=== PATIENT | male | born 1950 | race Two or more races ===

== ENCOUNTER 2023-07-18 03:21 | Inpatient (IN) | payer MEDICARE, OTHER ==
[2023-07-18] VITALS (7 sets, daily range): BP systolic 98; BP diastolic 66; PULSE 77–127; RESP 20–24; O2SAT 90–100
[~2023-07-18] VITALS: Ht 175.3 cm; Wt 110.0 kg
[2023-07-18] MEDS ORDERED: IPRATROPIUM BROM 0.5 MG/2.5ML INH SOL NEB ONE (04:00)
[2023-07-18] MEDS ORDERED: DexAMETHasone SOD PHOS 10MG/1ML VIAL INJ IV ONE (04:00)
[2023-07-18] MEDS ORDERED: ALBUTEROL SULF 2.5 MG/0.5ML(0.5%) NEB SOLN NEB ONE (04:00)
[2023-07-18 04:26] LABS: Basophils # (auto) 0 10 ^3/uL (0-0.2); Basophils % (auto) 0.4 % (0.0-2.0); Eosinophils # (auto) 0.1 10 ^3/uL (0-0.8); Eosinophils % (auto) 0.7 % (0.0-7.0); Hematocrit 52.4 % (41.0-53.0); Hemoglobin 17.2 g/dL (13.5-17.5); Lymphocytes % (auto) 13.4 % (10.0-50.0); Mean Corpuscular Hgb Conc. 32.7 g/dL (32.0-36.0); Mean Corpuscular Volume 97.6 fL (80.0-100.0); Monocytes # (auto) 0.7 10 ^3/uL (0-1.3); Monocytes % (auto) 8.6 % (0.0-12.0); Neutrophils % (auto) 76.9 % (37.0-80.0); Nucleated Red Blood Cells % 0.2 %; Red Blood Cells 5.37 10^6/uL (4.5-5.90); Red Cell Distribution Width 15.3 % (11.8-14.3); White Blood Cell 7.8 10^3/uL (4.4-10.8)
[2023-07-18 04:31] LABS: Alanine Aminotransferase 37 U/L (7-40); Albumin 3.9 g/dL (3.2-4.8); Alkaline Phosphatase 51 U/L (46-116); Anion Gap 8 (5-15); Aspartate Aminotransferase 27 U/L (13-40); BUN/Creatinine Ratio 10.7 (10.0-20.0); Blood Urea Nitrogen 13 mg/dL (9-23); Calcium 8.8 mg/dL (8.7-10.4); Carbon Dioxide 24 mmol/L (20-30); Chloride 107 mmol/L (98-107); Glucose 93 mg/dL (74-106); Magnesium 2.3 mg/dL (1.6-2.6); Potassium 3.6 mmol/L (3.5-5.1); Sodium 139 mmol/L (136-145)
[2023-07-18 04:32] LABS: Bilirubin, Total 1.3 mg/dL (0.2-1.0); Total Protein 5.7 g/dL (5.7-8.2)
[2023-07-18 04:37] LABS: INR 1.19 (0.9-1.15); Partial Thromboplastin Time 28.5 SEC (24.5-34.5); Prothrombin Time 12.4 sec (9.3-11.8)
[2023-07-18] MEDS ORDERED: FUROSEMIDE 20 MG/2 ML VIAL IV ONE (10:15)
[2023-07-18] MEDS ORDERED: NITROGLYCERIN 0.4 MG SL TAB SL PRN (10:15)
[2023-07-18] MEDS ORDERED: MORPHINE SULFATE INJ 2 MG/ml SYRG IV PRN (10:15)
[2023-07-18] MEDS ORDERED: ACETAMINOPHEN 325 MG TAB PO PRN (10:15)
[2023-07-18] MEDS ORDERED: ALBUTEROL SULF 2.5 MG/0.5ML(0.5%) NEB SOLN NEB PRN (10:15)
[2023-07-18] MEDS ORDERED: MUPI2OIN2 TOP (10:18)
[2023-07-18] MEDS ORDERED: TAMS1CAP25 PO (10:18)
[2023-07-18] MEDS ORDERED: FURO40TA4 PO (10:18)
[2023-07-18] MEDS ORDERED: THEO400T13 PO (10:18)
[2023-07-18] MEDS ORDERED: CLIN-203 PO (10:18)
[2023-07-18] MEDS ORDERED: CLAR1TAB21 PO (10:18)
[2023-07-18] MEDS ORDERED: ALPR0.255 PO (10:18)
[2023-07-18] MEDS ORDERED: DOXY1CAP57 PO (10:18)
[2023-07-18] MEDS ORDERED: POTA-211 (10:18)
[2023-07-18] MEDS ORDERED: FLUT1AER17 PO (10:18)
[2023-07-18 11:01] LABS: Triglycerides 51 mg/dL (< 150)
[2023-07-18 11:02] LABS: LDL Cholesterol 48 mg/dL (< 100)
[2023-07-18 11:03] LABS: Cholesterol 120 mg/dL (< 200); HDL Cholesterol 63 mg/dL (40-59)
[2023-07-18] MEDS ORDERED: AZITHROMYCIN 500MG/ 250ML 250 ML IV ONE (11:45)
[2023-07-18 13:12] LABS: COVID19 ANTIGEN SOFIA FIA NEGATIVE (NEGATIVE)
[2023-07-18 13:13] LABS: Rapid Influenza A Negative (Negative); Rapid Influenza B Negative (Negative)
[2023-07-18] MEDS: ALBUTEROL SULF 2.5 MG/0.5ML(0.5%) NEB SOLN NEB SCH ×3 (13:32→22:00)
[2023-07-18] MEDS: IPRATROPIUM BROM 0.5 MG/2.5ML INH SOL NEB SCH ×3 (13:32→22:00)
[2023-07-18 15:21] LABS: Urine Bacteria NONE SEEN /hpf (None Seen); Urine Blood Negative /uL (Negative); Urine Clarity Clear (Clear); Urine Color Yellow (Yellow); Urine Protein, UAD Negative (Negative); Urine Specific Gravity 1.008 (1.001-1.035); Urine Urobilinogen Normal (Negative); Urine WBC 1 /hpf (0 - 3); Urine pH 6.5 (5.0-8.0)
[2023-07-18] MEDS ORDERED: IOHEXOL 350 MG/ML 100ML IJ ONE (18:27)
[2023-07-18] MEDS: methylPREDNISolone SOD SUCC 40 MG/ML VL IV SCH (22:00)
[2023-07-18] MEDS ORDERED: ALBU0.084 IN (23:14)
[2023-07-18] MEDS ORDERED: OLAN1TAB19 PO (23:14)
[2023-07-18] MEDS ORDERED: LEVO50TA7 PO (23:14)
[2023-07-18] MEDS ORDERED: CHOL20007 OR (23:14)
[2023-07-18] MEDS ORDERED: PERP2TAB6 PO (23:14)
[2023-07-18] MEDS ORDERED: AMIT10TA12 PO (23:14)
[2023-07-18] MEDS ORDERED: ASCO500T11 PO (23:14)
[2023-07-18] MEDS ORDERED: BUPR-346 PO (23:14)
[2023-07-18] MEDS ORDERED: THEO1CAP4 PO (23:14)
[2023-07-18] MEDS ORDERED: NEBI2.5T6 PO (23:14)
[2023-07-18] MEDS ORDERED: ALBU0.084 NEB (23:14)
[2023-07-18] MEDS ORDERED: PRED15SO33 PO (23:14)
[2023-07-19] VITALS (14 sets, daily range): BP systolic 95–111; BP diastolic 64–73; PULSE 63–104; RESP 14–22; TEMP 97.3–98.3; O2SAT 90–96
[2023-07-19] MEDS: IPRATROPIUM BROM 0.5 MG/2.5ML INH SOL NEB SCH ×7 (02:30→22:17)
[2023-07-19] MEDS: ALBUTEROL SULF 2.5 MG/0.5ML(0.5%) NEB SOLN NEB SCH ×7 (02:30→22:17)
[2023-07-19 06:18] LABS: Basophils # (auto) 0 10 ^3/uL (0-0.2); Basophils % (auto) 0.1 % (0.0-2.0); Eosinophils # (auto) 0 10 ^3/uL (0-0.8); Hematocrit 50.4 % (41.0-53.0); Hemoglobin 17.2 g/dL (13.5-17.5); Lymphocytes # (auto) 0.4 10 ^3/uL (0.4-5.4); Lymphocytes % (auto) 3.4 % (10.0-50.0); Mean Corpuscular Hemoglobin 32.7 pg (28.0-32.0); Mean Corpuscular Volume 95.9 fL (80.0-100.0); Monocytes # (auto) 0.7 10 ^3/uL (0-1.3); Monocytes % (auto) 6.4 % (0.0-12.0); Neutrophils # (auto) 9.8 10 ^3/uL (1.6-8.6); Neutrophils % (auto) 90.1 % (37.0-80.0); Nucleated Red Blood Cells % 0.3 %; Red Blood Cells 5.26 10^6/uL (4.5-5.90); Red Cell Distribution Width 14.8 % (11.8-14.3); White Blood Cell 10.8 10^3/uL (4.4-10.8)
[2023-07-19 06:40] LABS: Alanine Aminotransferase 34 U/L (7-40); Albumin 3.9 g/dL (3.2-4.8); Alkaline Phosphatase 53 U/L (46-116); Anion Gap 11 (5-15); Aspartate Aminotransferase 23 U/L (13-40); BUN/Creatinine Ratio 9.9 (10.0-20.0); Blood Urea Nitrogen 11 mg/dL (9-23); Calcium 9.9 mg/dL (8.5-10.1); Carbon Dioxide 22 mmol/L (20-30); Chloride 107 mmol/L (98-107); Glucose 117 mg/dL (74-106); Potassium 3.9 mmol/L (3.5-5.1); Sodium 140 mmol/L (136-145); Total Protein 5.9 g/dL (5.7-8.2)
[2023-07-19] MEDS: FUROSEMIDE 20 MG/2 ML VIAL IV SCH (09:23)
[2023-07-19] MEDS: ENOXAPARIN SOD 40 MG/0.4 ML SYRINGE SC SCH (09:23)
[2023-07-19] MEDS: methylPREDNISolone SOD SUCC 40 MG/ML VL IV SCH ×2 (09:23→21:16)
[2023-07-19] MEDS ORDERED: AZITHROMYCIN 500MG/ 250ML 250 ML IV SCH (10:00)
[2023-07-19] MEDS ORDERED: THEOPHYLLINE PO SCH (10:00)
[2023-07-19] MEDS ORDERED: TAMSULOSIN HYDROCHLORIDE 0.4 MG CAP PO SCH (10:00)
[2023-07-19] MEDS: BUDESONIDE (INHALATION) 0.5 MG/2 ML NEB NEB SCH (19:20)
[2023-07-20] VITALS (14 sets, daily range): BP systolic 117–123; BP diastolic 68–75; PULSE 56–102; RESP 17–24; TEMP 97.3–97.9; O2SAT 90–99
[2023-07-20] MEDS: IPRATROPIUM BROM 0.5 MG/2.5ML INH SOL NEB SCH ×4 (02:16→14:11)
[2023-07-20] MEDS: ALBUTEROL SULF 2.5 MG/0.5ML(0.5%) NEB SOLN NEB SCH ×4 (02:16→14:12)
[2023-07-20] MEDS: BUDESONIDE (INHALATION) 0.5 MG/2 ML NEB NEB SCH (06:27)
[2023-07-20 06:49] LABS: Basophils # (auto) 0 10 ^3/uL (0-0.2); Basophils % (auto) 0.1 % (0.0-2.0); Eosinophils # (auto) 0 10 ^3/uL (0-0.8); Hematocrit 51.9 % (41.0-53.0); Hemoglobin 17.2 g/dL (13.5-17.5); Lymphocytes # (auto) 0.5 10 ^3/uL (0.4-5.4); Lymphocytes % (auto) 3.6 % (10.0-50.0); Mean Corpuscular Hgb Conc. 33.3 g/dL (32.0-36.0); Mean Corpuscular Volume 96.1 fL (80.0-100.0); Monocytes % (auto) 7.9 % (0.0-12.0); Neutrophils # (auto) 11.3 10 ^3/uL (1.6-8.6); Neutrophils % (auto) 88.4 % (37.0-80.0); Nucleated Red Blood Cells % 0.2 %; Red Cell Distribution Width 14.9 % (11.8-14.3); White Blood Cell 12.8 10^3/uL (4.4-10.8)
[2023-07-20 06:50] LABS: Anion Gap 11 (5-15); Carbon Dioxide 24 mmol/L (20-30); Chloride 105 mmol/L (98-107); Sodium 140 mmol/L (136-145)
[2023-07-20 06:57] LABS: BUN/Creatinine Ratio 11.8 (10.0-20.0); Blood Urea Nitrogen 13 mg/dL (9-23); Glucose 120 mg/dL (74-106)
[2023-07-20] MEDS: ENOXAPARIN SOD 40 MG/0.4 ML SYRINGE SC SCH (09:43)
[2023-07-20] MEDS: methylPREDNISolone SOD SUCC 40 MG/ML VL IV SCH (09:44)
[2023-07-20] MEDS: FUROSEMIDE 20 MG/2 ML VIAL IV SCH (09:44)
[2023-07-20] MEDS ORDERED: PANTOPRAZOLE 40 MG TAB PO SCH (10:00)
[2023-07-20] MEDS ORDERED: AZITHROMYCIN 250 MG TAB PO SCH (10:00)
[2023-07-20] MEDS ORDERED: predniSONE 20 MG TAB PO SCH (10:45)
[2023-07-20] MEDS ORDERED: PRED20TA2 PO (12:13)
[2023-07-20] MEDS ORDERED: PANT40T PO (12:13)
[2023-07-20] MEDS ORDERED: AZIT-43 PO (12:13)
[2023-07-20] MEDS ORDERED: FUROSEMIDE 20 MG/2 ML VIAL IV SCH (18:00)
== END 2023-07-20 16:09 | disposition home or self-care (01) | DRG 291 ==
LOC: ER 03:21 → EDBD 03:21 → TELE 10:16 → TELE-WESTW 22:51
PROVIDERS: ADMIT Internal Medicine; ATTEND Internal Medicine
PROC: 5A09357 Assistance with Respiratory Ventilation, Less than 24 Consecutive Hours, Continuous Positive Airway Pressure (ICD-10-PCS; principal; 2023-07-18)
PROC: 5A09357 Assistance with Respiratory Ventilation, Less than 24 Consecutive Hours, Continuous Positive Airway Pressure (ICD-10-PCS; 2023-07-19)
PROC: 5A09357 Assistance with Respiratory Ventilation, Less than 24 Consecutive Hours, Continuous Positive Airway Pressure (ICD-10-PCS; 2023-07-20)
DX: I50.33 Acute on chronic diastolic (congestive) heart failure (principal); J96.21 Acute and chronic respiratory failure with hypoxia; J44.1 Chronic obstructive pulmonary disease with (acute) exacerbation; J45.901 Unspecified asthma with (acute) exacerbation; T38.0X5A Adverse effect of glucocorticoids and synthetic analogues, initial encounter; E66.01 Morbid (severe) obesity due to excess calories; G47.33 Obstructive sleep apnea (adult) (pediatric); I27.20 Pulmonary hypertension, unspecified; Z20.822 Contact with and (suspected) exposure to COVID-19; F43.10 Post-traumatic stress disorder, unspecified; D69.6 Thrombocytopenia, unspecified; Z68.35 Body mass index [BMI] 35.0-35.9, adult; Z87.891 Personal history of nicotine dependence; Z85.828 Personal history of other malignant neoplasm of skin; Z85.820 Personal history of malignant melanoma of skin; Z99.81 Dependence on supplemental oxygen; D72.829 Elevated white blood cell count, unspecified
CPT/HCPCS: 36415; 71045; 71275; 80048; 80053; 80061; 81001; 83036; 83735; 83880; 84443; 84484; 85025; 85379; 85610; 85730; 87426; 87804; 93005; 93306; 93970; 94640; 94660; 96374; 96375; 99291; G0378; J1100

== ENCOUNTER 2023-11-05 02:43 | Emergency (ER) | payer MEDICARE, OTHER ==
[~2023-11-05] VITALS: Ht 175.3 cm; Wt 110.0 kg
[~2023-11-05 02:43] MED LIST: ALBU0.084 NEB; ALPR0.255 PO; AMIT10TA12 PO; ASCO500T11 PO; AZIT-43 PO; BUPR-346 PO; CHOL20007 OR; FURO40TA4 PO; LEVO50TA7 PO; NEBI2.5T6 PO; OLAN1TAB19 PO; PANT40T PO; PRED20TA2 PO; TAMS1CAP25 PO; THEO1CAP4 PO
[2023-11-05] MEDS ORDERED: EPINEPHrine HCL 1 MG/10 ML SYRG IV ONE (02:44)
[2023-11-05 02:51] VITALS: BP 0/0; PULSE 0; RESP 0; O2SAT 0
== END 2023-11-05 02:50 ==
LOC: EDBD 02:43 → ER 02:43
DX: I46.9 Cardiac arrest, cause unspecified (principal); I11.0 Hypertensive heart disease with heart failure; I50.9 Heart failure, unspecified; J44.9 Chronic obstructive pulmonary disease, unspecified; Z88.0 Allergy status to penicillin
CPT/HCPCS: 31500; 92950; 99285; J0171; 99291